=== PATIENT | male | born 1980 | race Caucasian/White ===

== ENCOUNTER 2025-04-30 16:19 | Emergency (ER) | payer OTHER ==
[~2025-04-30] VITALS: Ht 170.2 cm; Wt 79.2 kg
[2025-04-30] MEDS ORDERED: HYDROCODONE/ACETA 5/325 TAB PO ONE (18:15)
[2025-04-30] MEDS ORDERED: IBUPROFEN 600 MG TAB PO ONE ×2 (18:15→18:30)
[2025-04-30 18:27] VITALS: BP 106/60
[2025-04-30] MEDS ORDERED: HYDROCODONE/ACETA 7.5/325 TAB PO ONE (18:30)
== END 2025-04-30 18:28 | disposition home or self-care (01) ==
LOC: ED 16:19
DX: S93.504A Unspecified sprain of right lesser toe(s), initial encounter (principal); V93.38XA Fall on board other unpowered watercraft, initial encounter
CPT/HCPCS: 73630; 99283; A9270